=== PATIENT | male | born 1980 | race Caucasian/White ===

== ENCOUNTER → 2023-05-13 10:34 | Outpatient (CLI) | payer OTHER, SELFPAY | PROVIDERS: Visit Provider Nurse Practitioner Family | DX: L02.11 Cutaneous abscess of neck (principal) | CPT/HCPCS: 87070; 87205 ==

== ENCOUNTER → 2023-07-01 09:55 | Outpatient (CLI) | payer OTHER, SELFPAY ==
[2023-07-01 10:52] LABS: Add Manual Diff / Slide Review NO; Basophils Absolute Auto 100 /uL (0-100); Basophils Percent Auto 0.7 % (0-2); Eosinophils Absolute Auto 100 /uL (0-450); Eosinophils Percent Auto 1.4 % (2-4); Hematocrit 48.3 % (41-53); Hemoglobin 16.6 g/dL (13.5-17.5); Lymphocytes Absolute Auto 1700 /uL (1100-4500); Lymphocytes Percent Auto 21.6 % (25-40); Mean Corpuscular HGB Conc 34.4 % (30-36); Mean Corpuscular Hemoglobin 29.6 PG (26-34); Mean Corpuscular Volume 86.1 fL (80-100); Monocytes Absolute Auto 600 /uL (0-900); Monocytes Percent Auto 7.6 % (3-14); Neutrophils Absolute Auto 5400 /uL (1500-7000); Neutrophils Percent Auto 68.7 % (50-75); Platelet Count 245 X10^3/uL (150-400); Red Blood Cell Count 5.61 X10^6/uL (4.5-5.9); Red Cell Distribution Width 14.1 % (11.6-14.8); White Blood Cell Count 7.8 X10^3/uL (4.5-11.0)
[2023-07-01 10:58] LABS: Alanine Aminotransferase 34 IU/L (<50); Albumin 4.7 g/dL (3.5-5.0); Albumin Globulin Ratio 1.6 (1.0-2.8); Alkaline Phosphatase 67 U/L (38-126); Aspartate Aminotransferase 32 IU/L (17-59); BUN Creatinine Ratio 23.4 (6-22); Bilirubin Total 0.6 mg/dL (0.2-1.3); Blood Urea Nitrogen 15 mg/dL (9-20); Calcium 9.2 mg/dL (8.4-10.2); Carbon Dioxide 29 mmol/L (22-32); Chloride 105 mmol/L (98-107); Cholesterol 173 mg/dL (140-199); Estimated Glomerular Filt Rate > 60 mL/min (>60); Glucose 100 mg/dL (70-100); HDL Cholesterol 45 mg/dL (40-60); HEMOLYSIS 20 (0-50); LDL Cholesterol Calculated 117 mg/dL (<100); Potassium 4.3 mmol/L (3.4-5.1); Sodium 140 mmol/L (137-145); Total Protein 7.7 g/dL (6.3-8.2); Triglycerides 55 mg/dL (35-150)
== END ==
LOC: LAB 09:56
PROVIDERS: PCP Family Medicine; Referring Provider Family Medicine; Visit Provider Family Medicine
DX: Z00.00 Encounter for general adult medical examination without abnormal findings (principal)
CPT/HCPCS: 36415; 80053; 80061; 85025

== ENCOUNTER 2024-09-24 06:35 | Emergency (ER) | payer OTHER, SELFPAY ==
[2024-09-24] VITALS (9 sets, daily range): BP systolic 112–142; BP diastolic 75–91; PULSE 62–82; RESP 15–23; TEMP 36.6; O2SAT 95–98; BMI 32.1
--- NOTE | 2024-09-24 06:54 | EKG_ITS ---
[address] [address] Test Date: 2024-09-24 Pat Name: Manny Rawls Department: [facility] Room: Gender: Male Pharm Spec: KULWINDER : 1980 Requested By: Order Number: [id number] Reading MD: Umang Denney Measurements Intervals [place] Rate: 70 P: 16 ME: 216 QRS: 0 QRSD: 114 T: 8 QT: 396 QTc: 427 Interpretive Statements Sinus rhythm with 1st degree AV block Inferior infarct , age undetermined Electronically Signed On 09-26-2024 13:42:59 PDT by Umang Denney
--- NOTE | 2024-09-24 07:46 | ED.ABDPAIN ---
HPI - Abdominal Pain General Chief Complaint: Abdominal Pain Stated Complaint: Sharp pain lower left stomach x 2 days Time Seen by Provider: 09/24/24 06:43 Source: patient Mode of arrival: Ambulatory History of Present Illness HPI narrative: 44-year-old male with a history of surgical abscess drainage in the abdomen a few years ago but no other surgical history of the abdomen. Patient had this sharp pain in his left lower stomach that started approximately 2 days ago. Currently the pain is a 5/10. Patient denies any need for pain meds at this time. His only medication patients are sertraline and trazodone. He denies any other medical history. He has no other nausea or GI symptoms or symptoms. Related Data Previous Rx's ?Medication ?Instructions ?Recorded sertraline 50 mg tablet 50 mg PO DAILY #90 tabs 07/23/24 trazodone 50 mg tablet 50 mg PO BEDTIME PRN insomnia #90 07/23/24 tabs hydrocodone 5 mg-acetaminophen 325 1 tab PO Q4-6H PRN pain #20 tabs 09/24/24 mg tablet tamsulosin 0.4 mg capsule (Flomax) 0.4 mg PO DAILY #14 caps 09/24/24 Allergies Allergy/AdvReac Type Severity Reaction Status Date / Time No Known Drug Allergies Allergy Unverified 09/24/24 06:49 Review of Systems Review of Systems ROS Unobtainable: All systems reviewed & are unremarkable except as noted in HPI and below Patient History Medical History Preventative health care Insomnia Anxiety Psoriasis Multiple benign nevi Tobacco use disorder Well adult exam Social History Smoking Status: Current every day smoker Smoking Status: Current every day smoker tobacco type: cigarettes Exam Initial Vital Signs Initial Vital Signs: Vital Signs Temperature 97.8 F 09/24/24 06:50 Pulse Rate 82 09/24/24 06:50 Respiratory Rate 16 09/24/24 06:50 Blood Pressure 112/75 09/24/24 06:50 Pulse Oximetry 95 09/24/24 06:50 Oxygen Delivery Method Room Air 09/24/24 06:50 General: Healthy appearing, in no acute distress. Able to give a complete and coherent history. Well-nourished well-developed HEENT: Moist mucous membranes, normal sclera with reactive pupils, Neck: No JVD, supple Respiratory: Lungs are clear to auscultation, no wheezing no rales no rhonchi. Full and symmetrical air movement Cardiac: Regular rate and rhythm no murmurs no bruits Abdomen: Soft, mildly tender to palpation in left lower quadrant, no rebound or guarding, no flank pain Skin: Warm and dry, no rashes Neurologic: Grossly neurologically intact with no obvious asymmetries or abnormalities Extremities: No trauma, well perfused Psych: Cooperative, appropriate insight and affect Course Orders Ordered: Discontinued Medications Lactated Ringer's (Lactated Ringers) 1,000 mls @ 1,000 mls/hr IV BOLUS ONE Stop: 09/24/24 09:38 Ondansetron HCl (Ondansetron 4 Mg/2 Ml Inj) 4 mg IV NOW PRN PRN Reason: Nausea And Vomiting Ondansetron HCl (Ondansetron 4 Mg Odt) 4 mg PO NOW PRN PRN Reason: Nausea And Vomiting Reevaluation(s) Reevaluation #1: Upon re-evaluation, patient stable but still in a little bit of pain. Vital Signs Vital signs: Vital Signs - 8 hr 09/24/24 06:50 Temperature 97.8 F Pulse Rate 82 Respiratory Rate 16 Blood Pressure 112/75 Pulse Oximetry 95 Oxygen Delivery Method Room Air MDM - Abdominal Pain Differential Diagnosis Differential diagnosis: Likely abdominal pain, acute appendicitis, calculus of kidney, constipation and diverticulitis Condition is:: Inadequately Controlled Lab Data 09/24/24 08:00 09/24/24 08:00 Labs: Lab Results 09/24/24 09/24/24 Range/Units 07:17 08:00 WBC 11.2 H (4.5-11.0) X10^3/uL RBC 5.15 (4.5-5.9) X10^6/uL Hgb 15.4 (13.5-17.5) g/dL Hct 44.7 (41-53) % MCV 86.8 (80-100) fL MCH 29.8 (26-34) PG MCHC 34.4 (30-36) % RDW 14.7 (11.6-14.8) % Plt Count 219 (150-400) X10^3/uL Neut % (Auto) 84.1 H (50-75) % Lymph % (Auto) 9.7 L (25-40) % [place] % (Auto) 5.0 (3-14) % Eos % (Auto) 0.7 L (2-4) % Baso % (Auto) 0.5 (0-2) % Neut # (Auto) 9400 H (1738-0222) /uL Lymph # (Auto) 1100 (5957-4273) /uL [place] # (Auto) 600 (0-900) /uL Eos # (Auto) 100 (0-450) /uL Baso # (Auto) 100 (0-100) /uL Sodium 138 (137-145) mmol/L Potassium 3.6 (3.4-5.1) mmol/L Chloride 104 (98-107) mmol/L Carbon Dioxide 27 (22-32) mmol/L BUN 15 (9-20) mg/dL Creatinine 0.69 (0.66-1.25) mg/dL Estimated GFR > 60 (>60) mL/min BUN/Creatinine Ratio 21.7 (6-22) Glucose 114 H (70-99) mg/dL Calcium 9.0 (8.4-10.2) mg/dL Total Bilirubin 0.5 (0.2-1.3) mg/dL AST 24 (17-59) IU/L ALT 18 (<50) IU/L Alkaline Phosphatase 70 (38-126) U/L Ammonia < 9 L (9-30) umol/L Total Protein 7.3 (6.3-8.2) g/dL Albumin 4.4 (3.5-5.0) g/dL Globulin 2.9 (1.7-4.1) g/dL Albumin/Globulin Ratio 1.5 (1.0-2.8) Lipase 439 H (23-300) U/L Urine RBC 5-10/hpf H (0-5/HPF) Urine WBC None seen (0-5/HPF) Ur Squamous Epith Cells None seen (0-5/HPF) Urine Bacteria None seen (None) Ur Culture Indicated? Cult not indicated Vol Urine Centrifuged 10ml (spun) Point of care testing: Urine Dip Bedside Urine Glucose Negative Bedside Urine Bilirubin - Negative Bedside Urine Ketone - Negative Urine Specific [place] 1.015 Bedside Urine Occult Blood ++ Bedside Urine pH 6.0 Bedside Urine Protein - Negative Bedside Urine Urobilinogen - Negative Bedside Urine Nitrite - Negative Bedside Urine Leukocytes - Negative Esterase ECG Data Interpretation: EKG showed a normal axis, sinus rhythm with first-degree AV block. Rate is 70 beats per minute. No other ME interval changes, T-wave inversion seen in only 1 lead in lead 3. No previous EKG found. MDM Narrative Medical decision making narrative: Patient had never having a 3 mm renal stone on the left side which is the culprit of her his pain. Patient was given a strainer and advised to push fluids as much as possible and will follow up with Urology if pain persists. Patient can also return to the ER if pain becomes unbearable. Discharge Plan Departure Patient Disposition: Home Clinical Impression: Calculus of kidney, Diverticulosis Instructions: DI for Kidney Stones, DI for Diverticulosis Activity Restrictions/Additional Instructions: Drink plenty of fluids, take meds as prescribed. Follow-up with urology if pain persists or can come back to the ER. Prescriptions: New tamsulosin [Flomax] 0.4 mg capsule 0.4 mg PO DAILY Qty: 14 0RF hydrocodone-acetaminophen 5-325 mg tablet 1 tab PO Q4-6H PRN (Reason: pain) Qty: 20 0RF No Action trazodone 50 mg tablet 50 mg PO BEDTIME PRN (Reason: insomnia) Qty: 90 0RF Rx Instructions: Due for appointment prior to future refills sertraline 50 mg tablet 50 mg PO DAILY Qty: 90 0RF Rx Instructions: take in the AM Due for appointment prior to additional refills Referrals: Arley Everett DO [Primary Care Provider, Family Practice] Stand Alone Forms: Patient Portal/API
--- NOTE | 2024-09-24 08:01 | DI.CT.S_ITS ---
PROCEDURE: CT ABDOMEN PELVIS W CON INDICATIONS: llq abdominal pain TECHNIQUE: After the administration of intravenous contrast, axial sections acquired from the lung bases to the pubic symphysis. Coronal and sagittal reformats were performed. For radiation dose reduction, the following was used: automated exposure control, adjustment of mA and/or kV according to patient size. COMPARISON: None. FINDINGS: Image quality: Diagnostic. Lower Chest: No significant findings. ABDOMEN: Liver: No solid mass. Gallbladder: Numerous small gallstones. No gallbladder wall thickening. Biliary ducts: No biliary dilation. Pancreas: No ductal dilation. Spleen: Size is within normal limits. Adrenal Glands: No adrenal nodules. Kidneys and Ureters: There is a 3 mm stone obstructing the left ureter at the ureterovesical junction with mild edematous change in the kidney and minimal hydronephrosis. Stomach and Bowel: Normal colonic caliber, without significant wall thickening. Normal appendix. Diverticulosis without evidence of acute diverticulitis. Peritoneum: No abnormal intraperitoneal fluid. No free air. Ventral Wall: No significant ventral hernia. Abdominal Nodes: No retroperitoneal or mesenteric adenopathy by size criteria. Vessels: Aorta and inferior vena cava are normal in size. PELVIS: Pelvic Organs: Unremarkable. Bladder: No bladder wall thickening, accounting for underdistention. Pelvic Nodes: No enlarged lymph nodes. Miscellaneous: Small bilateral fat containing inguinal hernias are seen. Bones: No aggressive osseous abnormality. IMPRESSION: 1. A 3 mm stone obstructs the distal left ureter at the ureterovesical junction resulting in left renal edema and minimal hydronephrosis. 2. Cholelithiasis. 3. Diverticulosis. 4. Small inguinal hernias. Dictated by: Joey Aguayo M.D. on 09/24/2024 at 9:32 Approved by: Joey Aguayo M.D. on 09/24/2024 at 9:35
[2024-09-24 08:13] LABS: Add Manual Diff / Slide Review NO; Hematocrit 44.7 % (41-53); Hemoglobin 15.4 g/dL (13.5-17.5); Lymphocytes Absolute Auto 1100 /uL (1100-4500); Mean Corpuscular HGB Conc 34.4 % (30-36); Mean Corpuscular Hemoglobin 29.8 PG (26-34); Mean Corpuscular Volume 86.8 fL (80-100); Platelet Count 219 X10^3/uL (150-400)
[2024-09-24 08:28] LABS: Alanine Aminotransferase 18 IU/L (<50); Albumin 4.4 g/dL (3.5-5.0); Albumin Globulin Ratio 1.5 (1.0-2.8); Alkaline Phosphatase 70 U/L (38-126); Blood Urea Nitrogen 15 mg/dL (9-20); Calcium 9.0 mg/dL (8.4-10.2); Carbon Dioxide 27 mmol/L (22-32); Chloride 104 mmol/L (98-107); Estimated Glomerular Filt Rate > 60 mL/min (>60); Globulin 2.9 g/dL (1.7-4.1); Glucose 114 mg/dL (70-99); HEMOLYSIS 38 (0-50); Lipase 439 U/L (23-300); Potassium 3.6 mmol/L (3.4-5.1); Sodium 138 mmol/L (137-145); Total Protein 7.3 g/dL (6.3-8.2)
[2024-09-24 08:29] LABS: Ammonia (NH3) < 9 umol/L (9-30)
[2024-09-24 09:20] LABS: Culture Indicated Urine Cult Not Indicated
== END 2024-09-24 10:11 | disposition home or self-care (01) ==
PROVIDERS: Emergency Provider Family Medicine; PCP Family Medicine
DX: N20.0 Calculus of kidney (principal); K57.90 Diverticulosis of intestine, part unspecified, without perforation or abscess without bleeding; I44.0 Atrioventricular block, first degree
CPT/HCPCS: 36415; 74177; 80053; 81003; 81015; 82140; 83690; 85025; 93005; 99283; 99284; Q9967